=== PATIENT | female | born 1975 | race Caucasian/White ===

== ENCOUNTER → 2020-01-30 | Outpatient (CLI) | payer OTHER ==
--- NOTE | 2020-01-30 12:47 | RAD ---
CLINICAL INDICATION: MARIETTA NIEVES, who is 45 years of age, presents for imaging evaluation of the palpable area of concern. The area of concern is described to be in the right upper outer breast COMPARISON: Prior mammographic imaging dating back to TECHNIQUE: Diagnostic views of the bilateral breasts were obtained, utilizing digital technique. BREAST COMPOSITION: The breasts are extremely dense. This may lower the sensitivity of mammography. MAMMOGRAM FINDINGS: A skin marker is seen denoting site of palpable abnormality. There are no suspicious masses, microcalcifications, or architectural distortion to suggest malignancy in either breast. The visualized axillae appear unremarkable. Given the palpable abnormality, further evaluation with diagnostic right breast ultrasound was performed. ULTRASOUND FINDINGS: Targeted ultrasound of the patient detected area of concern was performed. 10:00 position, 4 cm from the nipple: A hypoechoic mass of circumscribed margins and internal homogeneous low level echoes is present with parallel orientation and is of oval/round shape. There is no internal vascularity on Doppler interrogation. It demonstrates posterior acoustic enhancement and measures 0.8 cm. 10:00 position, 4 cm from the nipple: There are 2 anechoic avascular mass of circumscribed margins and round/oval shape present. They demonstrates posterior acoustic enhancement and a parallel orientation. They measure 2.3 cm in size. IMPRESSION: 1. Right breast probably benign mass for which follow up is recommended. RECOMMENDATION: In the absence of new clinical symptoms or change in physical exam, short term follow up diagnostic examination is recommended in 6 months to assess for interval stability. BIRADS 3: PROBABLY BENIGN Electronically signed by: Davis Hinton MD (01/30/2020 12:44 PM) [id number]
== END | disposition home or self-care (01) ==
LOC: MAMMO 09:14
PROVIDERS: ATTEND Family Medicine
DX: Z12.31 Encounter for screening mammogram for malignant neoplasm of breast (principal); N63.11 Unspecified lump in the right breast, upper outer quadrant
CPT/HCPCS: 76641; 77067